=== PATIENT | male | born 1975 | race African-American/Black ===

== ENCOUNTER 2021-09-09 14:14 | Outpatient (REF) | payer OTHER, SELFPAY ==
[2021-09-09 16:30] LABS: Basophils Absolute Auto 0.1 X10*3/uL (0.0-0.2); Basophils Percent Auto 0.7 % (0-2); Eosinophils Absolute Auto 0.3 X10*3/uL (0.0-0.4); Eosinophils Percent Auto 3.7 % (0-4); Hematocrit 44.2 % (42.0-52.0); Hemoglobin 14.7 g/dl (14.0-18.0); Imm Gran Abs Auto 0.01 X10*3/uL (0.00-0.03); Imm Gran Pct Auto 0.1 % (0.0-0.4); Lymphocytes Absolute Auto 2.5 X10*3/uL (1.2-4.9); Lymphocytes Percent Auto 37.4 % (20-40); MANUAL DIFF FLAG NO; Mean Corpuscular HGB Conc 33.3 g/dl (31.0-36.0); Mean Corpuscular Hemoglobin 29.9 pg (27.0-33.0); Mean Platelet Volume 12.6 fL (9.4-12.4); Monocytes Absolute Auto 0.9 X10*3/uL (0.1-1.2); Monocytes Percent Auto 13.5 % (2-11); Neutrophils Percent Auto 44.6 % (45-73); Platelet Count 238 X10*3/uL (160-400); Red Blood Count 4.91 X10*6/uL (4.60-5.80); Red Cell Distribution Width 12.6 % (11.0-16.0); White Blood Count 6.8 X10*3/uL (4.8-10.8)
[2021-09-09 16:46] LABS: Alanine Aminotransferase 36 U/L (0-40); Albumin Level 4.6 g/dL (3.5-5.0); Alkaline Phosphatase 112 U/L (39-117); Anion Gap 15 (12-20); Aspartate Amino Transferase 27 U/L (5-37); Bilirubin Total 0.8 mg/dL (0.0-1.0); Blood Urea Nitrogen 8 mg/dL (9-16); Calcium 10.3 mg/dL (8.4-10.2); Carbon Dioxide 32 mmol/L (22-29); Chloride 97 mmol/L (96-108); Estimated Glomerular Filt Rate > 60; Glucose Random 101 mg/dL (60-115); Potassium 3.9 mmol/L (3.3-5.1); Sodium 140 mmol/L (135-145); Total Protein 8.4 g/dL (6.5-8.0)
[2021-09-09 17:06] LABS: TSH reflex Free T4 3.34 uIU/mL (0.32-4.0)
[2021-09-11 10:03] LABS: LDL Cholesterol Direct 103 mg/dL (<100)
== END 2021-09-09 14:15 | disposition home or self-care (01) ==
LOC: HO.HMGCLDS 14:14
PROVIDERS: Visit Provider Internal Medicine
DX: E66.01 Morbid (severe) obesity due to excess calories (principal); E78.9 Disorder of lipoprotein metabolism, unspecified; F33.9 Major depressive disorder, recurrent, unspecified; I10 Essential (primary) hypertension; L70.9 Acne, unspecified
CPT/HCPCS: 36415; 80053; 83721; 84443; 85025

== ENCOUNTER 2021-12-22 15:19 | Outpatient (REF) | payer OTHER, SELFPAY ==
--- NOTE | ~2021-12-22 | XR_ITS ---
EXAMINATION: XR FINGER, RIGHT CLINICAL INFORMATION: Pain COMPARISON: None TECHNIQUE: Three views of the right thumb. FINDINGS: No evidence for an acute fracture or dislocation. Mild degenerative changes XR/XR finger RT min 2V IMPRESSION: No fracture or dislocation right first digit
== END 2021-12-22 15:20 | disposition home or self-care (01) ==
LOC: HO.HMGCX 15:19
PROVIDERS: PCP Internal Medicine
DX: R52 Pain, unspecified (principal)
CPT/HCPCS: 73140